=== PATIENT | female | born 1935 | race Caucasian/White ===

== ENCOUNTER 2017-01-02 13:26 | Emergency (ER) | payer OTHER, MEDICARE ==
[~2017-01-02] VITALS: Ht 165.1 cm; Wt 83.9 kg
[2017-01-02] MEDS ORDERED: NORCO 5/3251 TABLET PO (15:47)
[2017-01-02] MEDS ORDERED: MOTRIN600 MG PO (15:47)
[2017-01-02] MEDS ORDERED: VALIUM2 MG PO (15:47)
[2017-01-02] MEDS ORDERED: PREDNISONE20 MG PO (15:48)
[2017-01-02 16:06] VITALS: BP 156/81
== END 2017-01-02 16:08 | disposition home or self-care (01) ==
LOC: EME 13:26
DX: M54.42 Lumbago with sciatica, left side (principal); E78.5 Hyperlipidemia, unspecified; Z86.61 Personal history of infections of the central nervous system
CPT/HCPCS: 99281; 99284; J3010; J7512

== ENCOUNTER 2017-02-11 01:31 | Emergency (ER) | payer OTHER, MEDICARE ==
[~2017-02-11] VITALS: Ht 165.1 cm; Wt 81.4 kg
[~2017-02-11 01:31] MED LIST: MOTRIN600 MG PO; NORCO 5/3251 TABLET PO; PREDNISONE20 MG PO; VALIUM2 MG PO
[2017-02-11 02:36] LABS: MCH 30.5 PG (29.0-34.0); MCHC 32.3 G/DL (30.0-36.0); MCV 94.5 FL (83-99); MEAN PLAT.VOLUME 11.9 uM^3 (9.5-12.4); PLATELET COUNT 197 K/uL (156-360); RBC DIS.WIDTH-CV 13.8 % (11.8-14.6); RBC DIS.WIDTH-SD 47.9 % (39-53); RED BLOOD COUNT 4.55 M/uL (3.80-5.20); WHITE BLOOD COUNT 5.7 K/uL (4.1-10.2)
[2017-02-11 02:45] LABS: CHLORIDE 106 mEq/L (99-109); POTASSIUM 4.5 mEq/L (3.7-5.4); SODIUM 141 mEq/L (136-147)
[2017-02-11 02:47] LABS: GLUCOSE 108 mg/dL (70-99)
[2017-02-11 02:48] LABS: ANION GAP 12 MEQ/L (2-14)
[2017-02-11 02:51] LABS: GFR ESTIMATE (CALCULATED) > 59 mL/min/
[2017-02-11 02:52] LABS: UREA NITROGEN (BUN) 14 mg/dL (9-23)
[2017-02-11 02:56] LABS: TROP-I INTERPRETATION NEGATIVE; TROPONIN-I < 0.01 ng/mL (0.0-0.30)
[2017-02-11 03:51] LABS: TOTAL BILIRUBIN 0.4 mg/dL (0.0-1.0)
[2017-02-11 03:52] LABS: ALKALINE PHOSPHATASE 78 IU/L (3-129)
[2017-02-11 03:54] LABS: DIRECT BILIRUBIN 0.1 mg/dL (0.0-0.3)
[2017-02-11 03:55] LABS: LIPASE 13 U/L (1.0-51.0)
[2017-02-11 05:01] LABS: TROP-I INTERPRETATION NEGATIVE; TROPONIN-I < 0.01 ng/mL (0.0-0.30)
[2017-02-11 05:27] VITALS: BP 145/74
== END 2017-02-11 05:43 | disposition home or self-care (01) ==
LOC: EME 01:31
PROVIDERS: Physician Assistant
DX: M54.9 Dorsalgia, unspecified (principal); E78.5 Hyperlipidemia, unspecified
CPT/HCPCS: 71020; 80048; 80076; 83690; 84484; 85027; 93005; 99281; 99284

== ENCOUNTER 2017-06-16 10:06 | Observation (INO) | payer OTHER, MEDICARE ==
[~2017-06-16] VITALS: Ht 165.1 cm; Wt 80.0 kg
[2017-06-16 10:47] LABS: EOSINOPHIL (%) 3.1 % (0-5); EOSINOPHIL COUNT 0.1 K/uL (0-0.3); IMMATURE GRANULOCYTE (%) 0.5 % (0.0-0.7); INSTRUMENT ABS NEUTROPHIL CT 2.2 K/uL; LYMPHOCYTE COUNT 1.5 K/uL (1.0-2.8); MCH 29.8 PG (29.0-34.0); MCHC 32.7 G/DL (30.0-36.0); MCV 91.1 FL (83-99); MEAN PLAT.VOLUME 11.1 uM^3 (9.5-12.4); MONOCYTE (%) 10.6 % (3-12); MONOCYTE COUNT 0.5 K/uL (0-0.8); NEUTROPHIL (%) 51.2 % (45-76); NEUTROPHIL COUNT 2.2 K/uL (1.8-6.4); PLATELET COUNT 160 K/uL (156-360); RBC DIS.WIDTH-CV 13.2 % (11.8-14.6); RBC DIS.WIDTH-SD 44.5 % (39-53); WHITE BLOOD COUNT 4.3 K/uL (4.1-10.2)
[2017-06-16 10:53] LABS: PROTHROMBIN TIME 10.6 SEC (10.2-12.9)
[2017-06-16 10:55] LABS: CHLORIDE 108 mEq/L (99-109); POTASSIUM 4.1 mEq/L (3.7-5.4); SODIUM 141 mEq/L (136-147)
[2017-06-16 10:56] LABS: PTT 26.4 SEC (25-37)
[2017-06-16 10:57] LABS: GLUCOSE 104 mg/dL (70-99)
[2017-06-16 10:58] LABS: ANION GAP 11 MEQ/L (2-14)
[2017-06-16 11:01] LABS: GFR ESTIMATE (CALCULATED) > 59 mL/min/; UREA NITROGEN (BUN) 14 mg/dL (9-23)
[2017-06-16 11:07] LABS: TROP-I INTERPRETATION NEGATIVE; TROPONIN-I < 0.01 ng/mL (0.0-0.30)
[2017-06-16] MEDS ORDERED: FLUOXETINE HCL20 MG PO (11:51)
[2017-06-16] MEDS ORDERED: PANTOPRAZOLE SO20 MG PO (11:51)
[2017-06-16] MEDS ORDERED: MOBIC15 MG PO (11:52)
[2017-06-16] MEDS ORDERED: HUMIRA40 MG/0.1 SC (11:53)
[2017-06-16 13:08] LABS: HDL CHOLESTEROL 53 MG/DL (Desirable>=50); LDL CHOLESTEROL 211 mg/dL (Desirable<100); NON-HDL CHOLESTEROL 258 mg/dL (Desirable<160); TOTAL CHOLESTEROL 311 mg/dL (Desirable<200); TRIGLYCERIDES 233 MG/DL (Normal: <150)
[2017-06-16 13:54] LABS: Estimated Average Glucose 134 mg/dL (70-123); HEMOGLOBIN A1c (GLYCOHEMOGLOB) 6.3 % HGB (Below 5.7)
[2017-06-16 16:30] VITALS: BP 144/70
[2017-06-16 19:30] VITALS: BP 139/67
[2017-06-17 00:11] VITALS: BP 150/70
[2017-06-17 04:00] VITALS: BP 145/67
[2017-06-17 05:52] LABS: HEMATOCRIT 40.6 % (36.0-46.0); MCHC 32.3 G/DL (30.0-36.0); MCV 92.9 FL (83-99); MEAN PLAT.VOLUME 11.7 uM^3 (9.5-12.4); PLATELET COUNT 159 K/uL (156-360); RBC DIS.WIDTH-CV 13.2 % (11.8-14.6); RBC DIS.WIDTH-SD 44.8 % (39-53); RED BLOOD COUNT 4.37 M/uL (3.80-5.20); WHITE BLOOD COUNT 3.7 K/uL (4.1-10.2)
[2017-06-17 06:15] LABS: ALKALINE PHOSPHATASE 67 IU/L (3-129); ANION GAP 8 MEQ/L (2-14); CHLORIDE 103 MEQ/L (99-109); GFR ESTIMATE (CALCULATED) > 59 mL/min/; GLUCOSE 104 mg/dL (70-99); POTASSIUM 4.3 MEQ/L (3.7-5.4); SAMPLE HEMOLYSIS CHECK 0; SAMPLE ICTERIC CHECK 0; SAMPLE LIPEMIA CHECK 0; SODIUM 139 MEQ/L (136-147); TOTAL BILIRUBIN 0.5 MG/DL (0.0-1.0); UREA NITROGEN (BUN) 14 mg/dL (9-23)
[2017-06-17 08:21] VITALS: BP 154/70
[2017-06-17 10:56] LABS: ADD MIUA? YES; BILIRUBIN NEGATIVE; BLOOD NEGATIVE; COLOR YELLOW ((YELLOW)); GLUCOSE (STRIP) NEGATIVE; KETONES NEGATIVE; LEUKOCYTES TRACE; NITRITE NEGATIVE; PROTEIN (STRIP) NEGATIVE; SPECIFIC GRAVITY 1.015 (1.000-1.030); UROBILINOGEN 0.2 MG/DL (0.2-1.0)
[2017-06-17 11:14] VITALS: BP 126/66
[2017-06-17 11:14] LABS: BACTERIA NONE SEEN /HPF; EPITHELIAL CELLS RARE /HPF; MUCUS TRACE /LPF; RED BLOOD CELLS 0-5 /HPF (0-5); UCUL ADDED? NO; WHITE BLOOD CELLS 0-5 /HPF (0-5)
[2017-06-17] MEDS ORDERED: ASPIR-LOW81 MG PO (12:22)
[2017-06-17] MEDS ORDERED: PRAVASTATIN SOD40 MG PO (12:22)
== END 2017-06-17 14:26 | disposition home or self-care (01) ==
LOC: EME 10:06 → 5WEST 11:33 → EDOF 11:33 → ENRESERV 11:42 → 5WEST 16:27
PROVIDERS: Emergency Medicine; Hospitalist
DX: G45.9 Transient cerebral ischemic attack, unspecified (principal); I10 Essential (primary) hypertension; I66.3 Occlusion and stenosis of cerebellar arteries; E78.5 Hyperlipidemia, unspecified; R73.03 Prediabetes; K21.9 Gastro-esophageal reflux disease without esophagitis; L40.9 Psoriasis, unspecified; G62.9 Polyneuropathy, unspecified; Z88.2 Allergy status to sulfonamides; Z88.8 Allergy status to other drugs, medicaments and biological substances
CPT/HCPCS: 70450; 70544; 70549; 70551; 71010; 80048; 80053; 80061; 81003; 83036; 84484; 85025; 85027; 85610; 85730; 93005; 99281; 99285; G0378; J1650

== ENCOUNTER 2017-08-11 14:18 | Observation (INO) | payer OTHER, MEDICARE ==
[~2017-08-11] VITALS: Ht 165.1 cm; Wt 82.0 kg
[~2017-08-11 14:18] MED LIST changes: +ASPIR-LOW81 MG PO; +FLUOXETINE HCL20 MG PO; +HUMIRA40 MG/0.1 SC; +MOBIC15 MG PO; +PANTOPRAZOLE SO20 MG PO; +PRAVASTATIN SOD40 MG PO
[2017-08-11 14:34] LABS: EOSINOPHIL (%) 2.5 % (0-5); EOSINOPHIL COUNT 0.1 K/uL (0-0.3); HEMATOCRIT 41.7 % (36.0-46.0); IMMATURE GRANULOCYTE (%) 0.4 % (0.0-0.7); INSTRUMENT ABS NEUTROPHIL CT 2.6 K/uL; LYMPHOCYTE COUNT 1.8 K/uL (1.0-2.8); MCH 30.3 PG (29.0-34.0); MCHC 32.4 G/DL (30.0-36.0); MCV 93.5 FL (83-99); MEAN PLAT.VOLUME 11.5 uM^3 (9.5-12.4); MONOCYTE (%) 7.2 % (3-12); MONOCYTE COUNT 0.4 K/uL (0-0.8); NEUTROPHIL (%) 53.5 % (45-76); NEUTROPHIL COUNT 2.6 K/uL (1.8-6.4); PLATELET COUNT 158 K/uL (156-360); RBC DIS.WIDTH-SD 44.8 % (39-53); RED BLOOD COUNT 4.46 M/uL (3.80-5.20); WHITE BLOOD COUNT 4.9 K/uL (4.1-10.2)
[2017-08-11 14:40] LABS: PROTHROMBIN TIME 11.1 SEC (10.2-12.9)
[2017-08-11 14:43] LABS: AMYLASE 32 IU/L (1-118); CHLORIDE 104 mEq/L (99-109); POTASSIUM 3.7 mEq/L (3.7-5.4); SODIUM 137 mEq/L (136-147)
[2017-08-11 14:45] LABS: GLUCOSE 170 mg/dL (70-99)
[2017-08-11 14:47] LABS: ANION GAP 10 MEQ/L (2-14)
[2017-08-11 14:48] LABS: SERUM ETHYL ALCOHOL < 10 mg/dL
[2017-08-11 14:49] LABS: GFR ESTIMATE (CALCULATED) > 59 mL/min/
[2017-08-11 14:50] LABS: UREA NITROGEN (BUN) 15 mg/dL (9-23)
[2017-08-11 14:52] LABS: LIPASE 11 U/L (1.0-51.0)
[2017-08-11 14:55] LABS: TROP-I INTERPRETATION NEGATIVE; TROPONIN-I < 0.01 ng/mL (0.0-0.30)
[2017-08-11 15:07] LABS: POINT-OF-CARE METER ID UU13113747
[2017-08-11] MEDS ORDERED: HYDROCORTISONE30 G2 TP (17:16)
[2017-08-11] MEDS ORDERED: ZANAFLEX2 M1 PO (17:17)
[2017-08-11] MEDS ORDERED: KENALOG,ARISTOC80 G1 TP (17:17)
[2017-08-11] MEDS ORDERED: MELOXICAM15 MG PO (17:19)
[2017-08-11] MEDS ORDERED: LO-DOSE ASPIRIN81 M2 PO (17:21)
[2017-08-11 18:05] LABS: HDL CHOLESTEROL 58 MG/DL (Desirable>=50); LDL CHOLESTEROL 197 mg/dL (Desirable<100); NON-HDL CHOLESTEROL 245 mg/dL (Desirable<160); TOTAL CHOLESTEROL 303 mg/dL (Desirable<200); TRIGLYCERIDES 241 MG/DL (Normal: <150)
[2017-08-11 18:09] LABS: Estimated Average Glucose 128 mg/dL (70-123); HEMOGLOBIN A1c (GLYCOHEMOGLOB) 6.1 % HGB (Below 5.7)
[2017-08-11 19:50] VITALS: BP 185/86
[2017-08-11 21:19] LABS: TROP-I INTERPRETATION NEGATIVE; TROPONIN-I < 0.01 ng/mL (0.0-0.30)
[2017-08-11 23:31] VITALS: BP 149/70; BP 159/68
[2017-08-11 23:37] LABS: ADD MIUA? YES; BILIRUBIN NEGATIVE; BLOOD NEGATIVE; COLOR STRAW ((YELLOW)); GLUCOSE (STRIP) NEGATIVE; KETONES NEGATIVE; LEUKOCYTES TRACE; NITRITE NEGATIVE; PROTEIN (STRIP) NEGATIVE; SPECIFIC GRAVITY 1.015 (1.000-1.030); UROBILINOGEN 0.2 MG/DL (0.2-1.0)
[2017-08-11 23:58] LABS: BACTERIA RARE /HPF; EPITHELIAL CELLS NONE SEEN /HPF; MUCUS NONE SEEN /LPF; RED BLOOD CELLS 0-5 /HPF (0-5); UCUL ADDED? YES
[2017-08-12 01:29] LABS: AMPHETAMINES QUANT VALUE 0 NG/ML; BARBITUATES QUANT VALUE 0 NG/ML; BENZODIAZEPINES QUANT VALUE 0 NG/ML; BENZODIAZEPINES, URINE SCREEN Negative (200 ng/mL); MARIJUANA QUANT VALUE 0 NG/ML; OPIATES QUANTITATIVE VALUE 0 NG/ML; PHENCYCLIDINE QUANT VALUE 0 NG/ML
[2017-08-12 02:34] VITALS: BP 157/82
[2017-08-12 03:16] LABS: TROP-I INTERPRETATION NEGATIVE; TROPONIN-I < 0.01 ng/mL (0.0-0.30)
[2017-08-12 03:30] LABS: CHLORIDE 110 mEq/L (99-109); POTASSIUM 3.6 mEq/L (3.7-5.4); SODIUM 139 mEq/L (136-147)
[2017-08-12 03:33] LABS: ANION GAP 7 MEQ/L (2-14)
[2017-08-12 03:35] LABS: GFR ESTIMATE (CALCULATED) > 59 mL/min/; GLUCOSE 107 mg/dL (70-99)
[2017-08-12 03:36] LABS: UREA NITROGEN (BUN) 11 mg/dL (9-23)
[2017-08-12 08:16] VITALS: BP 153/70
[2017-08-12] MEDS ORDERED: CLOPIDOGREL75 MG PO (10:48)
[2017-08-12 11:04] VITALS: BP 141/65
== END 2017-08-12 15:52 | disposition home or self-care (01) ==
LOC: EME 14:18 → EDOF 17:14 → 5WEST 17:14 → EDOF 17:14 → CANRESERV 17:16 → ENRESERV 17:16 → 5WEST 19:32
PROVIDERS: Emergency Medicine; Internal Medicine
DX: G45.9 Transient cerebral ischemic attack, unspecified (principal); R73.03 Prediabetes; K21.9 Gastro-esophageal reflux disease without esophagitis; L40.9 Psoriasis, unspecified; G62.9 Polyneuropathy, unspecified; Z86.73 Personal history of transient ischemic attack (TIA), and cerebral infarction without residual deficits; Z79.82 Long term (current) use of aspirin
CPT/HCPCS: 70450; 70496; 70498; 80048; 80061; 80306 90; 81003; 82150; 82948; 83036; 83690; 84484; 85025; 85610; 85651; 85730; 86850; 86870; 86900; 86901; 86905; 86920; 87077; 87086; 87186; 93005; 93306; 99281; 99285; G0378; G0480; J0360; J1650; J7030

== ENCOUNTER → 2017-10-27 | Outpatient (CLI) | payer OTHER, MEDICARE ==
[~2017-10-27] MED LIST changes: +CLOPIDOGREL75 MG PO; +DELTASONE20 M1 PO; +HYDROCORTISONE30 G2 TP; +KENALOG,ARISTOC80 G1 TP; +LO-DOSE ASPIRIN81 M2 PO; +MELOXICAM15 MG PO; +ROBITUSSIN AC,T10 ML PO; +ZANAFLEX2 M1 PO
== END | disposition home or self-care (01) ==
LOC: RAD 14:40
DX: R05 Cough (principal); J20.8 Acute bronchitis due to other specified organisms
CPT/HCPCS: 71046

== ENCOUNTER 2017-10-29 15:01 | Emergency (ER) | payer OTHER, MEDICARE ==
[~2017-10-29] VITALS: Ht 165.1 cm; Wt 79.5 kg
[~2017-10-29 15:01] MED LIST changes: -DELTASONE20 M1 PO; -ROBITUSSIN AC,T10 ML PO
[2017-10-29 16:35] LABS: HEMATOCRIT 43.1 % (36.0-46.0); HEMOGLOBIN 14.3 G/DL (11.9-15.5); MCH 30.4 PG (29.0-34.0); MCHC 33.2 G/DL (30.0-36.0); MCV 91.5 FL (83-99); PLATELET COUNT 176 K/uL (156-360); RBC DIS.WIDTH-CV 13.2 % (11.8-14.6); RBC DIS.WIDTH-SD 44.7 % (39-53); RED BLOOD COUNT 4.71 M/uL (3.80-5.20); WHITE BLOOD COUNT 4.9 K/uL (4.1-10.2)
[2017-10-29 16:53] LABS: CHLORIDE 104 mEq/L (99-109); SODIUM 138 mEq/L (136-147)
[2017-10-29 16:55] LABS: GLUCOSE 82 mg/dL (70-99)
[2017-10-29 16:59] LABS: CREATININE 0.6 mg/dL (0.6-1.3); GFR ESTIMATE (CALCULATED) > 59 mL/min/
[2017-10-29 17:00] LABS: UREA NITROGEN (BUN) 8 mg/dL (9-23)
[2017-10-29] MEDS ORDERED: DELTASONE20 M1 PO (17:57)
[2017-10-29] MEDS ORDERED: ROBITUSSIN AC,T10 ML PO (17:57)
[2017-10-29 18:15] VITALS: BP 139/79
== END 2017-10-29 18:17 | disposition home or self-care (01) ==
LOC: EME 15:01
PROVIDERS: Physician Assistant
DX: J20.9 Acute bronchitis, unspecified (principal); M41.9 Scoliosis, unspecified; K21.9 Gastro-esophageal reflux disease without esophagitis; E78.5 Hyperlipidemia, unspecified; F41.9 Anxiety disorder, unspecified; F32.9 Major depressive disorder, single episode, unspecified; Z79.82 Long term (current) use of aspirin; Z90.89 Acquired absence of other organs; Z88.2 Allergy status to sulfonamides; Z88.1 Allergy status to other antibiotic agents
CPT/HCPCS: 71046; 80048; 85027; 87040; 99281; 99284; J0696